=== PATIENT | male | born 1980 | race African-American/Black ===

== ENCOUNTER 2021-06-24 11:55 | Outpatient (REF) | payer OTHER, SELFPAY ==
[2021-06-24 13:35] LABS: MANUAL DIFF FLAG NO
[2021-06-24 13:40] LABS: Basophils Percent Auto 0.2 % (0-2); Eosinophils Absolute Auto 0.1 X10*3/uL (0.0-0.4); Eosinophils Percent Auto 1.3 % (0-4); Hematocrit 45.3 % (42.0-52.0); Hemoglobin 15.5 g/dl (14.0-18.0); Imm Gran Abs Auto 0.01 X10*3/uL (0.00-0.03); Imm Gran Pct Auto 0.2 % (0.0-0.4); Lymphocytes Absolute Auto 1.6 X10*3/uL (1.2-4.9); Lymphocytes Percent Auto 34.5 % (20-40); Mean Corpuscular HGB Conc 34.2 g/dl (31.0-36.0); Mean Corpuscular Hemoglobin 29.1 pg (27.0-33.0); Mean Corpuscular Volume 85.2 fL (80.0-98.0); Mean Platelet Volume 11.1 fL (9.4-12.4); Monocytes Absolute Auto 0.5 X10*3/uL (0.1-1.2); Monocytes Percent Auto 9.9 % (2-11); Neutrophils Absolute Auto 2.6 x10*3/uL (2.0-8.3); Neutrophils Percent Auto 53.9 % (45-73); Platelet Count 191 X10*3/uL (160-400); Red Blood Count 5.32 X10*6/uL (4.60-5.80); White Blood Count 4.7 X10*3/uL (4.8-10.8)
[2021-06-24 14:13] LABS: Alanine Aminotransferase 27 U/L (0-40); Albumin Level 4.7 g/dL (3.5-5.0); Alkaline Phosphatase 74 U/L (39-117); Anion Gap 13 (12-20); Aspartate Amino Transferase 21 U/L (5-37); Blood Urea Nitrogen 15 mg/dL (9-16); Calcium 9.9 mg/dL (8.4-10.2); Carbon Dioxide 26 mmol/L (22-29); Chloride 105 mmol/L (96-108); Cholesterol 269 mg/dL; Estimated Glomerular Filt Rate > 60; Glucose Fasting 84 mg/dL (60-99); HDL Cholesterol 58 mg/dL; LDL Cholesterol Calculated 193 mg/dl; Potassium 4.3 mmol/L (3.3-5.1); Sodium 140 mmol/L (135-145); Total Protein 7.6 g/dL (6.5-8.0); Triglycerides 93 mg/dL
[2021-06-27 04:30] LABS: HIV AB/AG Nonreactive (Nonreactive); HIV Num 1 0.15 S/CO (0.00-0.99)
[2021-06-27 04:34] LABS: HBS Num1 5.93 mIU/mL (0-7.99); ~HepC Num1 0.05 S/CO (0.00-0.79); ~Hepatitis B Surface Antibody NONREACTIVE (Nonreactive); ~Hepatitis C Antibody Nonreactive (Nonreactive)
== END 2021-06-24 11:56 | disposition home or self-care (01) ==
LOC: HO.10HDL 11:55
PROVIDERS: Visit Provider Internal Medicine
DX: Z00.00 Encounter for general adult medical examination without abnormal findings (principal)
CPT/HCPCS: 36415; 80053; 80061; 85025; 86706; 86803; 87389

== ENCOUNTER 2022-11-01 12:46 | Outpatient (REF) | payer OTHER, SELFPAY ==
[2022-11-01 14:12] LABS: MANUAL DIFF FLAG NO
[2022-11-01 14:24] LABS: Basophils Percent Auto 0.3 % (0-2); Eosinophils Absolute Auto 0.1 X10*3/uL (0.0-0.4); Eosinophils Percent Auto 0.9 % (0-4); Hematocrit 42.1 % (42.0-52.0); Hemoglobin 14.9 g/dl (14.0-18.0); Imm Gran Abs Auto 0.07 X10*3/uL (0.00-0.03); Imm Gran Pct Auto 1.1 % (0.0-0.4); Lymphocytes Absolute Auto 1.9 X10*3/uL (1.2-4.9); Lymphocytes Percent Auto 28.9 % (20-40); Mean Corpuscular HGB Conc 35.4 g/dl (31.0-36.0); Mean Corpuscular Hemoglobin 29.7 pg (27.0-33.0); Mean Platelet Volume 11.2 fL (9.4-12.4); Monocytes Absolute Auto 0.6 X10*3/uL (0.1-1.2); Monocytes Percent Auto 9.3 % (2-11); Neutrophils Absolute Auto 3.9 x10*3/uL (2.0-8.3); Neutrophils Percent Auto 59.5 % (45-73); Platelet Count 205 X10*3/uL (160-400); Red Blood Count 5.01 X10*6/uL (4.60-5.80); Red Cell Distribution Width 13.2 % (11.0-16.0); White Blood Count 6.5 X10*3/uL (4.8-10.8)
[2022-11-01 15:06] LABS: Alanine Aminotransferase 25 U/L (0-40); Albumin Level 4.6 g/dL (3.5-5.0); Alkaline Phosphatase 90 U/L (39-117); Anion Gap 13 (12-20); Aspartate Amino Transferase 27 U/L (5-37); Bilirubin Total 1.5 mg/dL (0.0-1.0); Blood Urea Nitrogen 12 mg/dL (9-16); Calcium 9.7 mg/dL (8.4-10.2); Carbon Dioxide 28 mmol/L (22-29); Chloride 105 mmol/L (96-108); Cholesterol 216 mg/dL; Estimated Glomerular Filt Rate > 60; Glucose Random 77 mg/dL (60-115); HDL Cholesterol 63 mg/dL; LDL Cholesterol Calculated 131 mg/dl; Potassium 4.4 mmol/L (3.3-5.1); Sodium 142 mmol/L (135-145); Total Protein 7.2 g/dL (6.5-8.0); Triglycerides 110 mg/dL
== END 2022-11-01 12:47 | disposition home or self-care (01) ==
LOC: HO.10HDL 12:46
PROVIDERS: Visit Provider Internal Medicine
DX: Z00.00 Encounter for general adult medical examination without abnormal findings (principal)
CPT/HCPCS: 36415; 80053; 80061; 85025

== ENCOUNTER 2022-12-28 16:22 | Outpatient (REF) | payer BC, SELFPAY ==
--- NOTE | ~2022-12-28 | US_ITS ---
EXAMINATION: US VENOUS ULTRASOUND WITH DOPPLER LOWER EXTREMITY, LEFT CLINICAL INFORMATION: Right calf pain. COMPARISON: None available. TECHNIQUE: Ultrasound of the deep veins is performed from the hip to the calf with compression sonography and color and pulse Doppler assessment. Spectral analysis with color-flow imaging is performed. FINDINGS: There is normal venous compression and respiratory variation and augmented flow. The visualized common femoral vein, superficial femoral vein, profunda femoral vein, popliteal vein, and the trifurcation region shows no evidence of deep venous thrombosis. The contralateral left common femoral vein appeared normal. No Rodriguez's cyst.. If the patient's symptoms persist, followup ultrasound in 5 days 7 days might be of value to exclude proximal propagation from a non-visualized calf vein. US/US venous duplex LE IMPRESSION: No evidence for deep venous thrombosis in the visualized veins of the left lower extremity.
== END 2022-12-28 16:23 | disposition home or self-care (01) ==
LOC: HO.US 16:22
PROVIDERS: PCP Internal Medicine; Visit Provider Internal Medicine
DX: M79.661 Pain in right lower leg (principal)
CPT/HCPCS: 93971

== ENCOUNTER 2024-05-30 16:35 | Outpatient (REF) | payer BC, SELFPAY ==
[2024-05-30 16:55] LABS: MANUAL DIFF FLAG NO
[2024-05-30 17:14] LABS: Basophils Percent Auto 0.2 % (0-2); Eosinophils Percent Auto 0.5 % (0-4); Hematocrit 44.3 % (42.0-52.0); Hemoglobin 15.4 g/dl (14.0-18.0); Imm Gran Abs Auto 0.02 X10*3/uL (0.00-0.03); Imm Gran Pct Auto 0.3 % (0.0-0.4); Lymphocytes Absolute Auto 2.2 X10*3/uL (1.2-4.9); Lymphocytes Percent Auto 36.9 % (20-40); Mean Corpuscular HGB Conc 34.8 g/dl (31.0-36.0); Mean Corpuscular Hemoglobin 28.2 pg (27.0-33.0); Mean Corpuscular Volume 81.1 fL (80.0-98.0); Monocytes Absolute Auto 0.4 X10*3/uL (0.1-1.2); Monocytes Percent Auto 7.2 % (2-11); Neutrophils Absolute Auto 3.3 x10*3/uL (2.0-8.3); Neutrophils Percent Auto 54.9 % (45-73); Platelet Count 185 X10*3/uL (160-400); Red Blood Count 5.46 X10*6/uL (4.60-5.80); Red Cell Distribution Width 13.2 % (11.0-16.0); White Blood Count 6.1 X10*3/uL (4.8-10.8)
[2024-05-30 17:34] LABS: Alanine Aminotransferase 34 U/L (0-40); Albumin Level 4.8 g/dL (3.5-5.0); Alkaline Phosphatase 72 U/L (39-117); Anion Gap 14 (12-20); Aspartate Amino Transferase 36 U/L (5-37); Bilirubin Total 1.4 mg/dL (0.0-1.0); Blood Urea Nitrogen 14 mg/dL (9-16); Calcium 9.8 mg/dL (8.4-10.2); Carbon Dioxide 26 mmol/L (22-29); Chloride 104 mmol/L (96-108); Cholesterol 241 mg/dL (<200); Estimated Glomerular Filt Rate > 60; Glucose Random 95 mg/dL (60-115); HDL Cholesterol 58 mg/dL (>40); LDL Cholesterol Calculated 162 mg/dL (<100); Sodium 140 mmol/L (135-145); Total Protein 7.7 g/dL (6.5-8.0); Triglycerides 105 mg/dL (<150)
[2024-05-30 17:40] LABS: Appearance Urine Clear; Color Urine Yellow; Glucose Urine UA Negative (Negative); Leukocyte Esterase Urine Negative (Negative); Nitrite Urine Negative (Negative); Specific Gravity - Urine 1.025 (1.005-1.025); Urine Blood Negative (Negative); Urine Ketones Trace mg/dL (Negative); Urine Protein Negative (Neg-Trace)
[2024-05-31 03:34] LABS: Syphilis Screen Nonreactive (Nonreactive)
[2024-05-31 04:01] LABS: HIV AB/AG Nonreactive (Nonreactive); HIV Num 1 0.05 S/CO (0.00-0.99); ~HepC Num1 0.09 S/CO (0.00-0.79); ~Hepatitis C Antibody Nonreactive (Nonreactive)
[2024-05-31 05:22] LABS: CT PCR NOT DETECTED (Not Detect.); NG PCR NOT DETECTED (Not Detect.)
[2024-06-02 23:19] LABS: TS Negative Control Passed; TS Panel A 13; TS Panel B 48; TS Positive Control Passed; TSpotTB Positive (Negative)
== END 2024-05-30 16:36 | disposition home or self-care (01) ==
LOC: HO.LAB 16:35
PROVIDERS: PCP Internal Medicine; Visit Provider Internal Medicine
DX: E78.00 Pure hypercholesterolemia, unspecified (principal); Z11.3 Encounter for screening for infections with a predominantly sexual mode of transmission
CPT/HCPCS: 80053; 80061; 81003; 85025; 86481; 86780; 86803; 87389; 87491; 87591

== ENCOUNTER 2024-06-23 11:20 | Outpatient (REF) | payer BC, SELFPAY ==
--- NOTE | ~2024-06-23 | XR_ITS ---
EXAMINATION: XR CHEST CLINICAL INFORMATION: HX OF PPD COMPARISON: Chest x-ray on 12/02/2019 TECHNIQUE: 2 views of the chest were obtained. FINDINGS: No significant abnormality is noted involving the heart, lungs, mediastinum, bony thorax or soft tissues. XR/XR chest 2V IMPRESSION: Unremarkable examination. Electronically signed by: Saritha Camarillo MD 06/23/2024 04:02 PM EST
== END 2024-06-23 11:21 | disposition home or self-care (01) ==
LOC: HO.XRAY 11:20
PROVIDERS: PCP Internal Medicine; Visit Provider Internal Medicine
DX: R76.11 Nonspecific reaction to tuberculin skin test without active tuberculosis (principal)
CPT/HCPCS: 71046

== ENCOUNTER 2024-12-08 14:42 | Outpatient (AMB) | payer BC, SELFPAY ==
--- NOTE | 2024-12-08 14:47 | A.OFFVIS_ITS ---
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 Hx of L ACL reconst 08/12/20. Patient reports that he has had pain in biltaeral knees ongoing for quite some time now the left is worse than the right. He has had previous cortisone injections, most recent being about 3 years ago. He does wear a knee brace which does help with prolonged walking. 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 He had a left ACL reconstruction about 4 years ago and ever since then he has had worsening left knee pain. He plays soccer occasionally and can walk about 2 miles but begins to have pretty significant pain after that. He has had steroid injections but they have not been helpful. 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 Left knee has medial going to add arthrosis with tenderness to palpation medial joint line. Results Reviewed Results Reviewed: I personally reviewed relevant radiographs. Severe left and moderate right knee osteoarthritis with varus alignment left greater than right Assessment & Plan Assessment & Plan (1) Bilateral primary osteoarthritis of knee: Code(s): M17.0 - Bilateral primary osteoarthritis of knee Category: Medical Plan: Bilateral knee osteoarthritis left greater than right. It a ACL reconstruction on the left which is not in helpful with respect to his pain. He has had steroid injections without benefit. I think it is reasonable to consider viscosupplementation and I recommend a unloading brace for the left knee. We had a long discussion regarding treatment options and the rationale for these options especially given his age. He understands this and we will proceed forward accordingly. Orders: Orders XR Knee Pedro Luis 3V Today M25.561 - Pain in right knee Coding Level of Care Code New Pt Level 3 (16181) Diagnoses Bilateral primary osteoarthritis of knee M17.0
[2024-12-08 14:48] VITALS: BMI 32.6
== END 2024-12-08 15:33 | disposition home or self-care (01) ==
LOC: HO.HOS 14:42
PROVIDERS: PCP Internal Medicine; Visit Provider Orthopaedic Surgery
DX: M17.0 Bilateral primary osteoarthritis of knee (principal)
CPT/HCPCS: 99203

== ENCOUNTER 2024-12-08 14:42 | Outpatient (REF) | payer BC, SELFPAY ==
--- NOTE | ~2024-12-08 | XR_ITS ---
EXAMINATION: X-ray knees, bilaterally. CLINICAL INFORMATION: Knee pain, bilaterally. TECHNIQUE: AP view both knees in standing position. Lateral and sunrise view both knees. COMPARISON: None FINDINGS: Joint space narrowing involving mostly the medial compartment with associated sclerosis along the articular surfaces of the femoral condyles and tibial plateau and small marginal osteophyte formation. There is medial deviation of the lower extremities. No acute cortical disruption or gross malalignment. No gross suprapatellar bursa joint effusion. No lytic or blastic lesions. XR/XR Knee Pedro Luis 3V IMPRESSION: Tricompartmental osteoarthrosis involving mostly the medial compartment, moderate to severe resulting in genu varum deformity. Electronically signed by: Quentin Jules MD 12/09/2024 07:42 AM EDT
== END 2024-12-08 14:43 | disposition home or self-care (01) ==
LOC: HO.HOSX 14:42
PROVIDERS: PCP Internal Medicine; Visit Provider Orthopaedic Surgery
DX: M25.561 Pain in right knee (principal); M17.0 Bilateral primary osteoarthritis of knee; Z98.890 Other specified postprocedural states
CPT/HCPCS: 73562

== ENCOUNTER → 2024-12-08 15:03 | Outpatient (BNV) | payer BC, SELFPAY | PROVIDERS: PCP Internal Medicine; Visit Provider Radiology Diagnostic Radiology | DX: M17.0 Bilateral primary osteoarthritis of knee (principal) | CPT/HCPCS: 73562 ==

== ENCOUNTER 2025-01-30 09:26 | Outpatient (AMB) | payer BC, SELFPAY ==
--- NOTE | 2025-01-30 09:26 | A.OFFPC_ITS ---
Vital Signs 01/30/25 09:31 01/30/25 09:44 Height 5 ft 10 in Weight 99.79 kg BMI 31.6 BP 140/86 H 130/86 Blood Pressure Location Lt brachial Position Sitting Respiration 16 Pulse 79 Pulse Source Pulse Oximeter Temp 97.5 F Temp Source Temporal Artery Scan Pulse Oximetry (%) 99 Oxygen Delivery Method Room Air Intake Visit Reasons: visit Rehabilitation Program Manager Required: No Accompanied by: Self / Same As Patient Allergies egg Adverse Reaction (Verified 01/30/25 09:26) Unknown shellfish Allergy (Uncoded 12/08/24 14:50) Anaphylaxis Tobacco use date assessed: 01/30/25 HPI HPI Comments History of Present Illness Details 44-year-old male with history of insomni a, anxiety, neuropathic pain of the right lower extremity, osteoarthritis of the bilateral knees presents to the office today for management of chronic conditions and to establish care. Hyperlipidemia-last LDL 165, no longer on statin. Has been working on managing with healthy diet and exercise though exercise is limited secondary to his arthritic pain. He has been eating less meat and increasing fiber as well as managing portion sizes. Osteoarthritis of the bilateral knees-following with Orthopedic surgery. He is awaiting a brace ordered by Orthopedics. He has not yet followed up but is being considered for gel shots. He has tried cortisone injections that most recently were not helpful though were previously effective Neuropathic pain of the right lower extremity-p.r.n. gabapentin does help Insomnia-controlled with zolpidem Intermittent anxiety-rare use of hydroxyzine Concerns: None Health maintenance: Colonoscopies to started age 46 ROS: General: No fevers, malaise, unintentional weight loss Cardiovascular: No chest pain, palpitations, or leg edema Respiratory: No shortness of breath, wheezing, cough MSK: See HPI Neuro: No headaches, weakness, paresthesias Skin: No rashes or lesions EXAM: Constitutional - Awake and Alert, No apparent distress Eyes - PERRL Cardiovascular - S1S2, RRR, No edema Respiratory - Normal lung expansion, Normal respiratory effort, No respiratory distress, CTA bilaterally Extremities - no calf tenderness bilaterally, no swelling Skin - Warm/Dry Neurological - Alert & oriented x3 Psychological - Appropriate affect [facility] Medical History (Updated 01/30/25 @ 09:56 by CIRILO Henderson) Neuropathy of right lower extremity Insomnia History of positive PPD Obesity Bilateral primary osteoarthritis of knee Hyperlipidemia Social History (Updated 12/08/24 @ 14:52 by Juliane Norman CMA) Patient Tobacco Use Status: Never used Tobacco e-Cigarette/Vaping Use: Never Used Current occupational status: employed 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 1. Little interest or pleasure in doing things: several days 2. Feeling down, depressed, or hopeless: not at all 3. Trouble falling or staying asleep, or sleeping too much: several days 4. Feeling tired or having little energy: not at all 5. Poor appetite or overeating: not at all 6. Feeling bad about yourself - or that you are a failure or have let yourself or your family down: not at all 7. Trouble concentrating on things, such as reading the newspaper or watching television: not at all 8. Moving or speaking so slowly that other people could have noticed. Or the opposite - being so fidgety or restless that you have been moving around a lot more than usual: not at all 9. Thoughts that you would be better off or of hurting yourself in some way: not at all Total score: 2 Source: Developed by Drs. Tadeo Trimble, Mena Lawler, Ernesto Cleveland and colleagues, with an educational onofre from [employer]. Thrive Questionnaire Date Thrive assessed: 01/30/25 I am a: Patient What is your living situation today?: I have a steady place to live Within the past 12 months, did the food you bought not last and you didn't have the money to get more?: Never true Within the past 12 months, did you worry whether your food would run out before you got money to buy more?: Never true Do you have trouble paying for medicines?: No Do you have trouble getting transportation to medical appointments?: No Do you have trouble paying your heating and electricity bill?: No Do you have trouble taking care of your child, family member or friend?: No Do you have trouble with day-to-day activities such as bathing, preparing meals, shopping, managing finances, etc.?: No Are you currently unemployed and looking for a job?: No Are you interested in more education?: No THRIVE Score: 0 AUDIT C Alcohol Use Questionnaire (AUDIT-C) 1. How often do you have a drink containing alcohol?: 4 or more times a week 2. How many drinks containing alcohol do you have on a typical day when you are drinking?: 1 or 2 3. How often do you have six or more drinks on one occasion?: Never Total Score: 4 STANTON-7 AMB Questionnaire STANTON-7 Date STANTON - 7 assessed: 01/30/25 Feeling nervous, anxious, or on edge: 0 = Not at all Not being able to stop or control worryin = Not at all Worrying too much about different things: 0 = Not at all Trouble relaxin = Not at all Being so restless that it is hard to sit still: 0 = Not at all Becoming easily annoyed or irritable: 0 = Not at all Feeling afraid as if something awful might happen: 0 = Not at all Total STANTON-7 score (0-4 normal; 5-9 mild; 10-14 moderate; 15-21 severe): 0 Source: Developed by Drs. Tadeo Trimble, Mena Lawler, Ernesto Cleveland and colleagues, with an educational onofre from [employer]. Physical exam (Primary Care) Vital Signs: Last Vital Signs Temp 97.5 F 01/30/25 09:31 Pulse 79 01/30/25 09:31 Resp 16 01/30/25 09:31 BP 130/86 01/30/25 09:44 Pulse Ox 99 01/30/25 09:31 Oxygen Delivery Method Room Air 01/30/25 09:31 BMI result Body Mass Index 31.6 Tobacco/Smoking Status: Tobacco use Status Tobacco use date assessed 01/30/25 01/30/25 09:28 Patient Tobacco Use Status Never used Tobacco 01/30/25 09:33 e-Cigarette/Vaping Use Never Used 01/30/25 09:33 Coding Level of Care Code New Pt Level 4 (63582) Complex EM visit Add On G2211 Diagnoses Hyperlipidemia E78.5 Insomnia G47.00 Obesity E66.9 Neuropathy of right lower extremity G57.91 Assessment & Plan Assessment & Plan (1) Hyperlipidemia: Code(s): E78.5 - Hyperlipidemia, unspecified Category: Medical Plan: Lipid panel ordered. ASCVD risk score to be calculated upon results and will consider resuming statin. Continue with lifestyle modifications (2) Insomnia: Code(s): G47.00 - Insomnia, unspecified Category: Medical Plan: Stable. Continue zolpidem (3) Obesity: Code(s): E66.9 - Obesity, unspecified Category: Medical Plan: Continue with healthy diet and exercise (4) Neuropathy of right lower extremity: Code(s): G57.91 - Unspecified mononeuropathy of right lower limb Category: Medical Plan: Gabapentin as needed Plan Follow-up for annual physical exam. Labs to be completed following visit today Orders: Orders Basic Metabolic Panel Today E66.9 - Obesity, unspecified, E78.5 - Hyperlipidemia, unspecified Complete Blood Count Auto Diff Today E66.9 - Obesity, unspecified, E78.5 - Hyperlipidemia, unspecified Liver Panel Today E66.9 - Obesity, unspecified, E78.5 - Hyperlipidemia, unspecified Lipid Panel Today E66.9 - Obesity, unspecified, E78.5 - Hyperlipidemia, unspecified
[2025-01-30 09:31] VITALS: BP 140/86; PULSE 79; RESP 16; TEMP 36.4; O2SAT 99; BMI 31.6
[2025-01-30 09:44] VITALS: BP 130/86
== END 2025-01-30 10:48 | disposition home or self-care (01) ==
LOC: HO.HMCHD 09:28
PROVIDERS: PCP Internal Medicine; Visit Provider Physician Assistant
DX: E78.5 Hyperlipidemia, unspecified (principal); G47.00 Insomnia, unspecified; E66.9 Obesity, unspecified; G57.91 Unspecified mononeuropathy of right lower limb

== ENCOUNTER 2025-01-30 09:26 | Outpatient (REF) | payer BC, SELFPAY ==
[2025-01-30 10:12] LABS: MANUAL DIFF FLAG NO
[2025-01-30 10:56] LABS: Hematocrit 42.3 % (42.0-52.0); Hemoglobin 15.3 g/dl (14.0-18.0); Imm Gran Abs Auto 0.02 X10*3/uL (0.00-0.03); Imm Gran Pct Auto 0.4 % (0.0-0.4); Lymphocytes Absolute Auto 2.0 X10*3/uL (1.2-4.9); Mean Corpuscular HGB Conc 36.2 g/dl (31.0-36.0); Mean Corpuscular Hemoglobin 29.5 pg (27.0-33.0); Mean Corpuscular Volume 81.5 fL (80.0-98.0); NRBC Abs Auto 0.000 X10*3/uL (0.0-0.012); NRBC Pct Auto 0.0 /100WBC (0.0-0.2); Platelet Count 169 X10*3/uL (160-400); Red Blood Count 5.19 X10*6/uL (4.60-5.80); White Blood Count 5.3 X10*3/uL (4.8-10.8)
[2025-01-30 11:21] LABS: Alanine Aminotransferase 119 U/L (0-40); Albumin Level 5.1 g/dL (3.5-5.0); Alkaline Phosphatase 68 U/L (39-117); Anion Gap 12 (12-20); Aspartate Amino Transferase 66 U/L (5-37); Blood Urea Nitrogen 14 mg/dL (9-16); Calcium 10.1 mg/dL (8.4-10.2); Carbon Dioxide 27 mmol/L (22-29); Chloride 103 mmol/L (96-108); Cholesterol 288 mg/dL (<200); Estimated Glomerular Filt Rate > 60; HDL Cholesterol 74 mg/dL (>40); Potassium 3.8 mmol/L (3.3-5.1); Sodium 138 mmol/L (135-145); Total Protein 7.9 g/dL (6.5-8.0); Triglycerides 105 mg/dL (<150)
== END 2025-01-30 09:27 | disposition home or self-care (01) ==
LOC: HO.LAB 09:26
PROVIDERS: PCP Physician Assistant; Visit Provider Physician Assistant
DX: E78.5 Hyperlipidemia, unspecified (principal); E66.9 Obesity, unspecified; Z68.31 Body mass index [BMI] 31.0-31.9, adult; G47.00 Insomnia, unspecified; G57.91 Unspecified mononeuropathy of right lower limb; M17.0 Bilateral primary osteoarthritis of knee; Z79.899 Other long term (current) drug therapy; Z13.31 Encounter for screening for depression; Z13.39 Encounter for screening examination for other mental health and behavioral disorders
CPT/HCPCS: 36415; 80048; 80061; 80076; 85025; 96127

== ENCOUNTER 2025-02-16 12:54 | Outpatient (AMB) | payer OTHER, SELFPAY ==
--- NOTE | 2025-02-16 13:00 | MHC.OFFVIS ---
Intake Visit Reasons: Bilateral Knee Durolane Injections Intake Note: Zachary is a 44 year old male who presents today for a Bilateral Knee Durolane Injecton. Left Knee Unloading brace was ordered but he has not yet received this. Allergies egg Adverse Reaction (Verified 01/30/25 09:26) Unknown shellfish Allergy (Uncoded 12/08/24 14:50) Anaphylaxis HPI HPI Bilateral Knee Durolane Injections: Details: Zachary is a 44 year old male who presents today for a Bilateral Knee Durolane Injecton. Left Knee Unloading brace was ordered but he has not yet received this. 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 Site was prepped using aseptic technique. Patient tolerated the procedure well. Shoulders, Hips, Knees, Knee Large Joint Injection : Bilateral Knee Coding Procedure code (CPT) selection complete Assessment & Plan Assessment & Plan (1) Bilateral primary osteoarthritis of knee: Code(s): M17.0 - Bilateral primary osteoarthritis of knee Category: Medical Plan: 44-year-old gentleman with bilateral knee OA. Bilateral Candi injections performed today. Follow up in 3 months. Coding Level of Care Code Est Pt Level 2 (37469) Diagnoses Bilateral primary osteoarthritis of knee M17.0 CPT Codes Shoulders, Hips, Knees, - Knee Large Joint Injection 73997: Bilateral Knee ([id number])
--- OUTSIDE RECORDS SUMMARY | 2025-02-16 13:34 | XMS_ITS | Encounter Summary ---
Author Organization [facility] Address [address] [place] [phone] Phone Care Team Providers Care Finance Admin Name Role Phone Eduar Jones MD Primary Care Provider Encounter Details Date Type Department Care Team (Late st Contact Info) Description 05/20/2018 Procedure Pass [facility], [address] [address] Social History Tobacco Use Types Packs/Day Years Used Date Smoking Tobacco: Never Smokeless Tobacco: Never Alcohol Use Standard Drinks/Week Comments Yes 0 (1 standard drink = 0.6 oz pur e alcohol) Sex and Gender Information Value Date Recorded Sex Assigned at Male 07/13/2022 3:18 PM EST Legal Sex Male 9:20 PM EDT Gender Identity Male 07/13/2022 3:18 PM EST Sexual Orientation Straight 07/13/2022 3: 18 PM EST documented as of this encounter Functional Status documented as of this encounter Plan of Treatment Not on file documented as of this encounter Visit Diagnoses Not on filedocumented in this encounter Care Teams Finance Admin Relationship Specialty Start Date End Date Eduar Jones MD [address] [place] [address] [place] [address] PCP - General 07/26/17 documented as of this encounter Additional Source Comments The information contained in this document represents components of the legal health record. It is not the complete legal health record.[facility]
== END 2025-02-16 13:15 | disposition home or self-care (01) ==
PROVIDERS: PCP Internal Medicine; Visit Provider Orthopaedic Surgery
DX: M17.0 Bilateral primary osteoarthritis of knee (principal)
CPT/HCPCS: 20610

== ENCOUNTER → 2025-02-16 12:54 | Outpatient (BNVA) | payer OTHER, SELFPAY | PROVIDERS: PCP Internal Medicine; Visit Provider Orthopaedic Surgery | DX: M17.0 Bilateral primary osteoarthritis of knee (principal); G62.9 Polyneuropathy, unspecified; E66.9 Obesity, unspecified; E78.5 Hyperlipidemia, unspecified | CPT/HCPCS: 20610; J7318 ==

== ENCOUNTER 2025-05-21 13:07 | Outpatient (AMB) | payer OTHER, SELFPAY ==
[2025-05-21 13:11] VITALS: BMI 31.6
--- NOTE | 2025-05-21 13:11 | A.OFFVIS_ITS ---
Vital Signs 05/21/25 13:11 Height 5 ft 10 in Weight 220 lb BMI 31.6 Intake Visit Reasons: OV - 3M S/P Bilateral Durolane Intake Note: Zachary is a 44 year old male who presents today for a follow up about 3 months s/p Bilateral Knee Durolane Injections. Patient reports that he did find significant improvement with the gel, he does notice some soreness with weather changes. He did get the brace, which he is wearing when playing soccer. The brace is helpful. Allergies egg Adverse Reaction (Verified 05/21/25 13:13) Unknown shellfish Allergy (Uncoded 05/21/25 13:13) Anaphylaxis HPI HPI OV - 3M S/P Bilateral Durolane: Details: 44-year-old active gentleman 3 months status post bilateral Durolene injections. He feels well. He is able to play soccer now in his able to walk comfortably throughout the day. 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 Assessment & Plan Assessment & Plan (1) Bilateral primary osteoarthritis of knee: Code(s): M17.0 - Bilateral primary osteoarthritis of knee Category: Medical Plan: Bilateral knee OA that was improved significantly after viscosupplementation. Continue activity as tolerated. May follow up in 9 months for repeat viscosupplementation if it lasts that long otherwise he can contact me sooner. We discussed the ideal frequency of gel injections. I think it is a year but anywhere after 6-9 months insurance typically pays for. He expressed understanding. Coding Level of Care Code Est Pt Level 3 (63907) Diagnoses Bilateral primary osteoarthritis of knee M17.0
--- OUTSIDE RECORDS SUMMARY | 2025-05-21 15:59 | XMS_ITS | Encounter Summary ---
Author Organization [facility] Address [address] [place] [phone] Phone Care Team Providers Care Seo Strategist Name Role Phone Eduar Jones MD Primary Care Provider Encounter Details Date Type Department Care Team (Late st Contact Info) Description 08/12/2020 Procedure Pass [place] Admitting Dept - Virtual Department [address] [place] [address] Social History Tobacco Use Types Packs/Day Years Used Date Smoking Tobacco: Never Smokeless Tobacco: Never Alcohol Use Standard Drinks/Week Comments Yes 10 (1 standard drink = 0.6 oz pu re alcohol) Sex and Gender Information Value Date Recorded Sex Assigned at Male 07/13/2022 3:18 PM EST Legal Sex Male 9:20 PM EDT Gender Identity Male 07/13/2022 3:18 PM EST Sexual Orientation Straight 07/13/2022 3: 18 PM EST documented as of this encounter Plan of Treatment Not on file documented as of this encounter Visit Diagnoses Not on filedocumented in this encounter Care Teams Seo Strategist Relationship Specialty Start Date End Date Eduar Jones MD [address] [place] [address] [place] [address] PCP - General 07/26/17 documented as of this encounter Additional Source Comments The information contained in this document represents components of the legal health record. It is not the complete legal health record.[facility]
--- OUTSIDE RECORDS SUMMARY | 2025-05-21 15:59 | XMS_ITS | Encounter Summary ---
Author Organization [facility] Address [address] [place] [phone] Phone Care Team Providers Care Websphere Process Server Developer Name Role Phone Eduar Jones MD Primary Care Provider Encounter Details Date Type Department Care Team (Late st Contact Info) Description 05/20/2018 Procedure Pass [facility], [address] [address] Social History Tobacco Use Types Packs/Day Years [...] on filedocumented in this encounter Care Teams Websphere Process Server Developer Relationship Specialty Start Date End Date Eduar Jones MD [address] [place] [address] [place] [address] PCP - General 07/26/17 documented as of this encounter Additional Source Comments The information contained in this document represents components of the legal health record. It is not the complete legal health record.[facility]
--- OUTSIDE RECORDS SUMMARY | 2025-05-21 16:00 | XMS_ITS ---
Author Name [facility] Organization Unknown History of Medication Use Medication Directions Dispensed Refills Start Date End Date Stat us dolutegravir (TIVICAY) 50 mg tab Take 50 mg by mouth daily for 30 days 05/08/2025 active emtricitabine-tenofov ir, TDF, (TRUVADA) 200-300 mg tablet Take 1 tablet by mouth daily for 30 days 05/08/2025 active atorvastatin (LIPITOR) 20 MG tablet Take 1 tablet (20 mg total) by mouth 12/31/2021 active zolpidem (AMBIEN) 10 mg tablet TAKE 1 TABLET BY MOUTH EVERY DAY AT BEDTIME NEEDED active Allergies Allergen Reaction Severity Comment Documented Date Source Statu s EGG 08/18/2019 [facility] active SHELLFISH CONTAINING PRODUCTS 05/20/2018 [facility] active Problems Problem Status Onset Date Problem Type Date of Resolution Source Screening for venereal disease active EncounterDiagnosisAct [facility] High risk heterosexual behavior active EncounterDiagnosisAct [facility] Encounter for human immunodeficiency virus (HIV) counseling active En[facility]DiagnosisAct [facility] Contact with and (suspected) exposure to infections with a predominantly sexual mode of transmission active EncounterDiagnosisAct [facility] Encounter for screening for HIV active EncounterDiagnosisAct C [facility] Contact with and (suspected) exposure to human immunodeficiency virus (hiv) active EncounterDiagnosisAct [facility] Encounters Encounter Type Encounter Reason Primary Diagnosis Location Date Ambulatory or Rectal High risk hetero sexual behavior [facility] 05/08/2025 Care Team Organization Name Specialty Phone Email Start Date End Da te [facility] Eduar Jones Primary Care 05/08/2025
--- OUTSIDE RECORDS SUMMARY | 2025-05-21 16:00 | XMS_ITS | Clinical Summary ---
Author Organization [facility] Address [address] [place] [phone] Phone Care Team Providers Care Barrel Rifler Operator Name Role Phone Eduar Jones MD Primary Care Provider Allergies Active Allergy Reactions Criticality Noted Date Comments Egg 08/18/2019 Shellfish Containing Products 2017 Medications PROAIR HFA 90 mcg/actuation inhaler 90 mcg. 04/21/20 18 Active zolpidem (AMBIEN) 5 MG tablet Take 5 mg by mouth nightly at bedtime. at bedtime. As needed last dose 1 month ago 0 04/05/20 18 Active docusate sodium (COLACE) 100 MG capsule Take 1 capsule (100 mg total) by mouth 2 (two) times a day. 08/12/19 21 Active Additional Information Patient not taking.Reported on 01/30/2022 aspirin 325 MG tablet Take 1 tablet (325 mg total) by mouth daily. 08/12/19 21 Active Additional Information Patient not taking.Reported on 01/30/2022 atorvastatin (LIPITOR) 20 MG tablet Take 20 mg by mouth every evening. 01/01/20 22 Active methylPREDNISolone (MEDROL, GILMER,) 4 mg tablet follow package directions 21 tablet 03/08/20 23 Active Additional Information Patient not taking.Reported on 10/16/2023 acetaminophen (TYLENOL) 500 MG tablet Take 500 mg by mouth every 6 (six) hours as needed for pain (specific location in comments). Active ibuprofen (ADVIL,MOTRIN) 200 MG tablet Take 200 mg by mouth every 6 (six) hours as needed for pain (specific location in comments). Active hylan polymers A and B (SYNVISC-ONE) 48 mg/6 mL Syrg intra-articular injection syringeIndications :Primary localized osteoarthrosis of left lower leg,Primary localized osteoarthrosis of right lower leg Inject one syringe (per knee) into IA space of each knee once at Doctor's office. 12 mL 11/01/19 24 Active Hospital, Clinic, or Other Facility Administered Medication Ordered Dose Route Frequency Start Date End Date Status lidocaine (XYLOCAINE) 1% injection 2 mL 2 mL See Adm Inst See admin instructions 01/30/2022 Active bupivacaine HCl (MARCAINE) 0.25% injection 2 mL 2 mL See Adm Inst See admin instructions 01/30/2022 Active triamcinolone acetonide (KENALOG-40) 40 mg/mL injection 80 mg 80 mg See Adm Inst See admin instructions 01/30/2022 Active Active Problems Problem Noted Date Diagnosed Date Left knee pain 05/02/2018 Family History Medical History Relation Comments Heart disease Unspecified Infl. arthritis Unspecified Relation Status Comments Unspecified Social History Tobacco Use Types Packs/Day Years Used Date Smoking Tobacco: Never Smokeless Tobacco: Never Alcohol Use Standard Drinks/Week Comments Yes 10 (1 standard drink = 0.6 oz pu re alcohol) Education Answer Date Recorded Are you interested in more education? Not on garima e 11/17/2022 Are you concerned about learning? Not on file 11/17/2022 No 11/17/2022 No 11/17/2022 Digital Access Answer Date Recorded No 12/15/2022 No 12/15/2022 Reliable internet access at home? Not on file 12/15/2022 Device with a working camera? Not on file Sex and Gender Information Value Date Recorded Sex Assigned at Male 07/13/2022 3:18 PM EST Legal Sex Male 9:20 PM EDT Gender Identity Male 07/13/2022 3:18 PM EST Sexual Orientation Straight 07/13/2022 3: 18 PM EST Last Filed Vital Signs Vital Sign Reading Time Taken Comments Blood Pressure 137/90 08/12/2020 1:00 PM EST Pulse 70 08/12/2020 1:00 PM EST Temperature 36.5 C (97.7 F) 08/12/2020 11:30 AM EST Respiratory Rate 18 08/12/2020 1:00 PM EST Oxygen Saturation 97% 08/12/2020 1:00 PM EST Inhaled Oxygen Concentration - - Weight 107.5 kg (237 lb) 08/11/2020 10:30 AM EST Height 180.3 cm (5' 11 ) 08/11/2020 10:30 AM EST Body Mass Index 33.05 08/11/2020 10:30 AM EST Plan of Treatment Health Maintenance Due Date Last Done Comments Adult Td,Tdap Booster 1981 LIPID PANEL 1981 DEPRESSION SCREENING 1993 HEPATITIS C SCREENING 1999 HIV ONE-TIME SCREENING (18-65 YEARS) 1999 INFLUENZA VACCINE (#1) 2025 , 04/21/2021, 05/20/2020, Additional history exists COVID-19 VACCINE (2024- season) 2025 07/15/2022, 05/28/2021, 09/17/2020, Additional history exists SMOKING STATUS SCREENING (Once After 26 Yrs) Completed 01/30/2022 HEPATITIS A VACCINES Aged Out No long er eligible based on patient's age to complete this topic HIB VACCINES Aged Out No longer eligi ble based on patient's age to complete this topic MENINGOCOCCAL VACCINES (ACWY) Aged Out No longer eligible based on patient's age to complete this topic MENINGOCOCCAL VACCINES (B) Aged Out N o longer eligible based on patient's age to complete this topic PNEUMOCOCCAL VACCINES (0-49 years) Aged Out No longer eligible based on patient's age to complete this topic Medical Devices Implanted Type Area Asbestos Surveyor Device Identifier Shelf Expiration Date Model / Serial / Lot Screw Bone 8x25mm Interference Biosure Regenesorb Biocomposite Absorable - [id number] Implanted:Qty: 1 on 08/12/2020 by Kenny Alexander DO at [facility] Left: Knee WHITTAKER 08/21/2022 [id number] / / [id number] [place] [id number] [facility] PPO EPO [place] P[place] [facility] PPO EPO [facility] PPO EPO Advance Directives For more information, please contact: [phone] (9AM - 5PM [facility], Sunday-Sunday) * Full Code (Presumed) (Latest Code Status on File) Date Activated Date Inactivated Comments 08/12/2020 7:13 AM Care Teams Barrel Rifler Operator Relationship Specialty Start Date End Date Eduar Jones MD [address] [place] [address] [place] [id number] PCP - General 07/26/17 Additional Source Comments The information contained in this document represents components of the legal health record. It is not the complete legal health record.[facility]
--- OUTSIDE RECORDS SUMMARY | 2025-05-21 16:00 | XMS_ITS | Encounter Summary ---
Author Organization [facility] Address [address] [place] [phone] Phone Care Team Providers Care Resistance Machine Welder Setter Name Role Phone Eduar Jones MD Primary Care Provider Encounter Details Date Type Department Care Team (Late st Contact Info) Description 08/11/2020 Prep for Surgery [facility] [address] [place] [id number] Kenny Alexander DO [address] [place] [address] Orthopedics & Sports Medicine, [facility] 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 It is not the complete legal health record.[facility]
== END 2025-05-21 13:32 | disposition home or self-care (01) ==
LOC: HO.HOS 13:07
PROVIDERS: PCP Internal Medicine; Visit Provider Orthopaedic Surgery
DX: M17.0 Bilateral primary osteoarthritis of knee (principal)
CPT/HCPCS: 99213